=== PATIENT | female | born 1965 | race Hispanic/Latino ===

== ENCOUNTER → 2019-11-27 | Day surgery (SDC) | payer BC, OTHER ==
[2019-11-24 13:50] LABS: BASOPHILS % 0.5 % (0.0-1.0); EOSINOPHILS # (AUTO) 0.1 (0.0-0.4); EOSINOPHILS % 0.6 % (0.0-6.0); HEMATOCRIT 39.5 % (34.2-44.1); HEMOGLOBIN 13.2 g/dL (12.0-16.0); LYMPHOCYTES # (AUTO) 1.9 (1.0-3.2); LYMPHOCYTES % 24.4 % (18.0-39.1); MEAN CORPUSCULAR HEMOGLOBIN 29.4 pg (28-32); MEAN CORPUSCULAR HGB CONC 33.4 g/dL (31-35); MONOCYTES # (AUTO) 0.6 (0.2-0.8); NEUTROPHILS # (AUTO) 5.3 (2.1-6.9); NEUTROPHILS % 67.1 % (38.7-80.0); PLATELET COUNT 316 x10e3/uL (140-360); RED BLOOD COUNT 4.49 x10e6/uL (3.6-5.1); RED CELL DISTRIBUTION WIDTH 13.3 % (11.7-14.4)
--- NOTE | 2019-11-24 13:58 | Diagnostic Imaging Report ---
EXAM: CHEST 2 VIEWS DATE: 11/24/2019 1:20 PM INDICATION: ] Evaluation COMPARISON: None FINDINGS: The trachea is midline. The lungs are symmetrically expanded without evidence for large focal consolidation, pneumothorax, or significant pleural effusion. The cardiomediastinal silhouette and pulmonary vasculature are within normal limits. No acute osseous abnormality is identified. Surgical clips noted overlying the right axilla. The surrounding soft tissues are unremarkable. IMPRESSION: No acute cardiopulmonary process identified. Signed by: Dr. Jarrod Orellana MD on 11/24/2019 1:55 PM
[2019-11-24 14:20] LABS: ANION GAP 13.3 mmol/L (8-16); BLOOD UREA NITROGEN 13 mg/dL (7-26); BUN/CREATININE RATIO 18 (6-25); CALCIUM 9.3 mg/dL (8.4-10.2); CARBON DIOXIDE 25 mmol/L (22-29); CHLORIDE 101 mmol/L (98-107); CREATININE, SERUM 0.72 mg/dL (0.57-1.11); EST GLOMERULAR FILTRATION RATE > 60 ML/MIN (60-); GLUCOSE 104 mg/dL (74-118); POTASSIUM 3.3 mmol/L (3.5-5.1); SODIUM 136 mmol/L (136-145)
[~2019-11-27] MED LIST: BUPIVACAINE HCL 0.5% INJ 30 ML VIAL INJ ONE; CEFAZOLIN SOD 1 GM/NS 50ML 100 ML IV ONE; DEXAMETHASONE SOD PHOS INJ 4 MG/ML VIAL ONE; FENTANYL CITRATE/PF 100MCG/2 ML INJ ONE; HORMONES PO; LIDOCAINE HCL 2% LOCAL INJ 5 ML SDV VIAL INJ ONE; MAXZIDE 75 MG-1 EACH PO; NEOSTIGMINE 1 MG/ML 10ML VIAL ONE; ONDANSETRON HCL INJ 2MG/ML 2ML 2 MG/ML VIAL ONE; PROPOFOL IV EMULSION 10 MG/ML 20 ML VIAL ONE; SEVOFLURANE INHAL SOLN 250 ML PEN BTL ONE
--- OUTSIDE RECORDS SUMMARY | 2019-11-27 05:45 | XMS REPORT ---
Author Author [facility] Organization [facility] Address Unknown Phone Unavailable Care Team Providers Care [employer] [facility] Name Role Phone LAURA MARROQUIN Unavailable Unavailable Problems This patient has no known problems. Allergies, Adverse Reactions, Alerts This patient has no known allergies or adverse reactions. Medications This patient has no known medications. Results Test Description Test Time Test Comments Text Results Atomic Results Result Comments CHEST 2 VIEWS 2019-11-24 13:55:00 [facility] [address] [place] [id number] Patient Name: TOBY HAYDEN MR #: [id number] : 1965 Age/Sex: 54/F Req #: [id number] Adm Physician: Ordered by: LAURA MARROQUIN DPM Report #: [id number] Location: OR Room/Bed: Procedure: [id number] DX/CHEST 2 VIEWS Exam Date: 11/24/19 Exam Time: 1320 REPORT STATUS: Signed EXAM: CHEST 2 VIEWS DATE: 11/24/2019 1:20 PM INDICATION: ] Evaluation COMPARISON: None FINDINGS: The trachea is midline. The lungs are symmetrically expanded without evidence for large focal consolidation, pneumothorax, or significant pleural effusion. The cardiomediastinal silhouette and pulmonary vasculature are within normal limits. No acute osseous abnormality is identified. Surgical clips noted overlying the right axilla. The surrounding soft tissues are unremarkable. IMPRESSION: No acute cardiopulmonary process identified. Signed by: Dr. Jarrod Padron MD on 11/24/2019 1:55 PM Dictated By: JARROD PADRON MD [id number] Transcribed By: NIKOLAI on 11/24/19 4571 COPY TO: LAURA MARROQUIN DPM
[2019-11-27 09:50] VITALS: BP 141/74
--- NOTE | 2019-11-27 19:45 | Operative Report ---
DATE OF PROCEDURE: 11/27/2019 SURGEON: Rolly Butt DPM PREOPERATIVE DIAGNOSIS: Hallux abductovalgus deformity of the left foot with exostosis medial aspect of the hallux on the left foot. POSTOPERATIVE DIAGNOSIS: Hallux abductovalgus deformity of the left foot with exostosis medial aspect of the hallux on the left foot. TITLE OF THE OPERATION: 1. Modified Mani bunionectomy of the left foot. 2. Arthroplasty of the left hallux with bone spur removal. Treatment today was surgical procedure as previously described. PROCEDURE IN DETAIL: The patient was taken to the operating room in a mildly sedated state, placed upon the operating table in supine position. Following induction of general anesthetic, left lower extremity was elevated to 60 degrees to exsanguinate before inflating the pneumatic thigh tourniquet at 350 mmHg for hemostasis. Left lower extremity was placed upon the operating table prior to performing following procedure: Procedure #1: Modified Mani bunionectomy of left foot. An approximate 6 cm dorsal linear incision was made overlying the dorsal medial aspect of 1st metatarsophalangeal joint, left foot. Incision was deepened via sharp and blunt dissection on the level of dorsal capsular structure. Care was taken to identify and retract all vital structures encountered. Head of the 1st metatarsal surgical site remodeled utilizing oscillating saw. The conjoined tendon of the adductor hallucis muscle was identified and tenotomized. A through and through V osteotomy was placed with apex distal and base proximal to allow for relative shift lateralward of the head on the more proximal segment, which was then impacted and stabilized with two cortical bone screws. The area was then irrigated with copious amounts of sterile saline solution after remodeling with a saw and bur and deep closure was 3-0 Vicryl, skin closure 4-0 nylon. Attention was then directed to the interphalangeal joint of the left hallux. A linear dorsal medial incision was placed and the medial aspect of the interphalangeal joint both proximal and distal phalanx were identified, noted to be hypertrophic and prominent, thus creating pressure points when walking in the plantar aspect of the hallux left. The area was then resected with oscillating saw and smoothed with a bone rasp and irrigated with copious amounts of sterile saline solution. Deep closure was 3-0 Vicryl and skin closure was 4-0 nylon. All areas of surgery were blocked with 0.5 Marcaine and Decadron LA. Released the pneumatic thigh tourniquet, showed normal hyperemic flush to all digits of the left foot. The patient left the operating room, vital signs stable in apparent satisfactory condition and tolerated both anesthetic and procedure very well. SKYLA Wilburn/MIGUEL /[id number]
== END | disposition home or self-care (01) ==
LOC: OR 05:20
PROVIDERS: ATTEND Podiatrist Foot Surgery
DX: M20.12 Hallux valgus (acquired), left foot (principal); M77.52 Other enthesopathy of left foot and ankle; I10 Essential (primary) hypertension; Z01.810 Encounter for preprocedural cardiovascular examination; Z01.812 Encounter for preprocedural laboratory examination; Z01.818 Encounter for other preprocedural examination; Z11.59 Encounter for screening for other viral diseases
CPT/HCPCS: 28296; 36415; 71046; 80048; 81025; 85025; 87635; 93005; C1713 ×4; J0690; J1100; J2001; J2405; J2704; J2710; J3010; 76000

== ENCOUNTER → 2020-03-11 | Day surgery (SDC) | payer BC ==
[2020-03-07 10:41] LABS: BASOPHILS # (AUTO) 0.1 (0.0-0.1); BASOPHILS % 0.8 % (0.0-1.0); EOSINOPHILS % 0.5 % (0.0-6.0); HEMATOCRIT 40.7 % (34.2-44.1); HEMOGLOBIN 13.5 g/dL (12.0-16.0); LYMPHOCYTES % 26.2 % (18.0-39.1); MEAN CORPUSCULAR HEMOGLOBIN 29.9 pg (28-32); MEAN CORPUSCULAR HGB CONC 33.2 g/dL (31-35); MONOCYTES # (AUTO) 0.5 (0.2-0.8); MONOCYTES % 6.1 % (4.4-11.3); NEUTROPHILS # (AUTO) 5.1 (2.1-6.9); NEUTROPHILS % 65.8 % (38.7-80.0); PLATELET COUNT 303 x10e3/uL (140-360); RED BLOOD COUNT 4.52 x10e6/uL (3.6-5.1); RED CELL DISTRIBUTION WIDTH 12.9 % (11.7-14.4)
[2020-03-07 10:56] LABS: ANION GAP 12.4 mmol/L (8-16); BLOOD UREA NITROGEN 11 mg/dL (7-26); BUN/CREATININE RATIO 15 (6-25); CALCIUM 8.6 mg/dL (8.4-10.2); CARBON DIOXIDE 26 mmol/L (22-29); CHLORIDE 102 mmol/L (98-107); CREATININE, SERUM 0.74 mg/dL (0.57-1.11); EST GLOMERULAR FILTRATION RATE > 60 ML/MIN (60-); GLUCOSE 86 mg/dL (74-118); POTASSIUM 3.4 mmol/L (3.5-5.1); SODIUM 137 mmol/L (136-145)
--- NOTE | 2020-03-07 11:53 | Diagnostic Imaging Report ---
EXAMINATION: CHEST 2 VIEWS INDICATION: Pre-operative COMPARISON: None FINDINGS: LINES/TUBES:None LUNGS:The lungs are well-inflated. No focal consolidation or pulmonary edema. PLEURA:No pleural effusion or pneumothorax. MEDIASTINUM:The cardiomediastinal silhouette appears normal in size and shape. BONES/SOFT TISSUES:Old eighth left posterior rib fracture. No acute fracture or dislocation. Surgical clips overlie the right axilla. ABDOMEN:No free air under the diaphragm. IMPRESSION: No focal pneumonia or pulmonary edema. Signed by: Danielle Munoz MD on 03/07/2020 11:50 AM
[~2020-03-11] MED LIST changes: +KETOROLAC TROMETHAMINE 30 MG/ML VIAL ONE; +METOCLOPRAMIDE HCL 10 MG/2ML VIAL ONE; +MIDAZOLAM HCL 2 MG/2 ML VIAL ONE
[2020-03-11 12:40] VITALS: BP 136/88
--- NOTE | 2020-03-11 18:17 | Operative Report ---
DATE OF PROCEDURE: 03/11/2020 SURGEON: Rolly Butt DPM ROOM NUMBER: [facility]. PREOPERATIVE DIAGNOSES: 1. Hallux abductovalgus deformity of right foot. 2. Painful hardware, left foot. 3. Contracture of the joint, 1st metatarsophalangeal joint, left foot. POSTOPERATIVE DIAGNOSES: 1. Hallux abductovalgus deformity of right foot. 2. Painful hardware, left foot. 3. Contracture of the joint, 1st metatarsophalangeal joint, left foot. TITLE OF THE OPERATIONS: 1. Modified Mani bunionectomy of the right foot. 2. Removal of hardware, left foot. 3. Release of contracture and remodeling of bone, 1st metatarsophalangeal joint, left foot. ANESTHESIA: General endotracheal. HEMOSTASIS: A left thigh tourniquet at 350 mmHg. PROCEDURE IN DETAIL: The patient was taken to the operating room in a mildly sedated state and placed on the operating table in supine position. Following induction of general anesthetic, the right lower extremity was elevated to 60 degrees to exsanguinate before inflating the pneumatic thigh tourniquet to 350 mmHg to create hemostasis. The right lower extremity was placed on the operating table prior to performing following procedures: Modified Mani bunionectomy of the right foot. An approximate 6 cm dorsal linear incision was made along the dorsal medial aspect of the 1st metatarsophalangeal joint of the right foot. Incision was deepened via sharp and blunt dissection on the level of dorsal capsular structure. Care was taken to identify and retract all vital structures encountered. The head of the 1st metatarsal delivered in the surgical site and remodeled utilizing oscillating saw. The conjoined tendon of the adductor hallucis muscle was identified and tenotomized. Through and through V-osteotomy was placed with apex distal and base proximally to allow for relative shift lateralward of the head of the more proximal segment, which was then compressed with 2 cortical bone screws. Medial eminence was further remodeled. This was done under fluoroscopy. The area was irrigated with copious amounts of sterile saline solution. Extensor brevis tendon was elongated. Deep closure was 3-0 Vicryl, subcutaneous closure 4-0 Vicryl and skin closure 4-0 nylon. The appropriate mildly compressive dressings were applied. Attention was then directed to the left foot, where a previous bunionectomy had been performed. The head of the 1st metatarsal was still quite prominent with a contracture and painful hardware. Incision was made overlying the painful hardware and the joint was freed and released. Medial eminence was noted to be hypertrophic and remodeled utilizing combination of oscillating saw and rotary bur. The conjoined tendon of the adductor hallucis muscle was identified, noted to be significantly hypertrophic with a fair amount of scarring and contracture. This was all released and removed. A TLS drain was installed to prevent further scarring or contracture or hematoma. The brevis tendon was noted to be contracted and was released as well. The medial eminence was further addressed under fluoroscopy and noted to be in excellent alignment. Deep closure and capsular repair were 3-0 Vicryl, subcutaneous closure was 4-0 Vicryl, and skin closure 4-0 Prolene. All areas of surgery were blocked with 0.5 Marcaine and Decadron LA. Human tissue allograft was used to facilitate healing. Due to the previous contractures and scarring, this will prevent further contractures hopefully along with the drain in the previously operated side. The patient tolerated both anesthetic and procedure very well. She was transferred to the PACU with vital signs stable and in no distress. SKYLA Wilburn/MIGUEL /[id number]
== END | disposition home or self-care (01) ==
LOC: OR 06:28
PROVIDERS: ATTEND Podiatrist Foot Surgery
DX: M20.11 Hallux valgus (acquired), right foot (principal); T84.84XA Pain due to internal orthopedic prosthetic devices, implants and grafts, initial encounter; M24.575 Contracture, left foot; M89.372 Hypertrophy of bone, left ankle and foot; I10 Essential (primary) hypertension; Y83.8 Other surgical procedures as the cause of abnormal reaction of the patient, or of later complication, without mention of misadventure at the time of the procedure; Z01.810 Encounter for preprocedural cardiovascular examination; Z01.812 Encounter for preprocedural laboratory examination; Z01.818 Encounter for other preprocedural examination; Z11.59 Encounter for screening for other viral diseases
CPT/HCPCS: 20680; 28104; 28270; 28296; 36415; 71046; 80048; 81025; 85025; 93005; C1713 ×4; J0690; J1100; J1885; J2001; J2250; J2405; J2704; J2710; J2765; J3010; Q4100; U0002; 76000